=== PATIENT | male | born 1995 | race Caucasian/White ===

== ENCOUNTER 2020-08-12 10:38 | Outpatient (REF) | payer OTHER, SELFPAY ==
[2020-08-12 11:19] LABS: COVID-19 Test Negative (Negative)
== END 2020-08-12 10:39 | disposition home or self-care (01) ==
LOC: HO.LAB 10:38
PROVIDERS: Visit Provider Internal Medicine
DX: Z20.822 Contact with and (suspected) exposure to COVID-19 (principal)
CPT/HCPCS: 36415; 87635; C9803